=== PATIENT | female | born 1995 | race Caucasian/White ===

== ENCOUNTER 2022-03-13 10:51 | Inpatient (IN) ==
[2022-03-13 11:27] LABS: Glucose,Urine (UA) Negative (Negative); Protein,Urine Negative (Negative); Urine Appearance Clear (Clear); Urine Color Yellow (Yellow); Urine Specific Gravity 1.015 (1.001-1.035)
[2022-03-13 11:28] LABS: Bilirubin,Urine Negative (Negative); Blood, Urine Negative (Negative); Ketones,Urine Negative (Negative); Nitrite,Urine Negative (Negative)
[2022-03-13 11:31] LABS: Hyaline Casts,Urine 2 /LPF (0-3); Mucus,Urine Occasional /LPF (Occasional); RBC,Urine 1 /HPF (0-4); Squamous Epithelial Cell,Urine Few /HPF (0-10)
[2022-03-13] MEDS ORDERED: cefTRIAXone 1,000 MG in SODIUM CHLORIDE 0.9% 100 ML IV ONE (11:50)
[2022-03-13] MEDS ORDERED: LACTATED RINGERS 1,000 ML IV ONE (11:50)
[2022-03-13] MEDS ORDERED: CARBOPROST TROMETHAMINE 250 MCG/ML AMP IM PRN (13:26)
[2022-03-13] MEDS ORDERED: ONDANSETRON 4 MG/2 ML VIAL IV PRN ×2 (13:26→21:31)
[2022-03-13] MEDS ORDERED: TRANEXAMIC ACID 1,000 MG in SODIUM CHLORIDE 0.9% 100 ML IV PRN (13:26)
[2022-03-13] MEDS ORDERED: BUTORPHANOL 2 MG/ML VIAL IV PRN (13:26)
[2022-03-13] MEDS ORDERED: MEPERIDINE 50 MG/1 ML VIAL IV PRN (13:26)
[2022-03-13] MEDS ORDERED: miSOPROStoL 200 MCG TABLET RECTAL PRN (13:26)
[2022-03-13] MEDS ORDERED: OXYTOCIN/LR 20 UNIT/1,000 ML BAG IV ONE ×3 (13:26→21:31)
[2022-03-13] MEDS ORDERED: METHYLERGONOVINE 0.2 MG/1 ML AMP IM PRN (13:26)
[2022-03-13] MEDS ORDERED: PROMETHAZINE 25 MG/1 ML VIAL IM ONE (13:42)
[2022-03-13] MEDS ORDERED: FAMOTIDINE 20 MG/2 ML VIAL IV ONE (13:42)
[2022-03-13] MEDS ORDERED: hydrOXYzine HCL 25 MG/1 ML VIAL IM PRN (13:42)
[2022-03-13] MEDS ORDERED: NALOXONE 0.4 MG/ML VIAL IV PRN (13:42)
[2022-03-13] MEDS ORDERED: CITRIC ACID/SODIUM CITRATE 30 ML UDCUP PO ONE (13:42)
[2022-03-13] MEDS ORDERED: diphenhydrAMINE 50 MG/1 ML VIAL IV PRN ×2 (13:42)
[2022-03-13 13:46] LABS: Basophils % 0.3 % (0.0-0.8); Eosinophils % 0.4 % (0.00-10.9); Hematocrit 30.4 VOL% (35.7-47.0); Hemoglobin 9.7 GM/DL (12.0-16.0); Immature Granulocytes % 0.5 %; Immature Granulocytes Absolute 0.05 #; Lymphocytes # 1.2 10*3/uL (1.4-4.0); Lymphocytes % 12.6 % (21.3-54.2); Mean Corpuscular HGB Conc 31.9 GM/DL (32-36); Mean Corpuscular Volume 85.9 FL (87-102); Mean Platelet Volume 10.2 FL (9.6-12.0); Monocytes # 0.6 10*3/uL (0.11-0.8); Monocytes % 6.6 % (1.7-12.7); Neutrophils % 79.6 % (38.7-73.9); Platelet Count 185 T/CUMM (130-400); Red Blood Count 3.54 MC/CUMM (3.8-5.5); Red Cell Distribution Width 15.3 % (9.3-17.3); White Blood Count 9.6 T/CUMM (4-12)
[2022-03-13] MEDS ORDERED: fentaNYL 2 MCG/ROPIV 0.2% EPID 100 ML EPIDURAL SCH (14:00)
[2022-03-13] MEDS: LACTATED RINGERS 1,000 ML IV SCH ×2 (14:02→17:20)
[2022-03-13 14:04] LABS: Albumin 2.6 G/DL (3.4-5.0); Bilirubin,Total 0.6 MG/DL (0.20-1.00); Calcium 8.9 MG/DL (8.5-10.1); Osmolality,Calculated 271.7 MOS/KG (273-304); Potassium 3.8 MMOL/L (3.5-5.1); Total Protein 6.3 G/DL (6.4-8.2)
[2022-03-13] MEDS ORDERED: ACETAMINOPHEN 500 MG TABLET PO PRN (15:05)
[2022-03-13] MEDS ORDERED: OXYTOCIN/LR 20 UNIT/1,000 ML BAG IV SCH (16:30)
[2022-03-13] MEDS ORDERED: LACTATED RINGERS 1,000 ML IV SCH (16:49)
[2022-03-13] MEDS: ePHEDrine 50 MG/ML VIAL IV PRN ×3 (17:06→17:16)
[2022-03-13] MEDS ORDERED: ePHEDrine 50 MG/ML VIAL IV ONE (17:36)
[2022-03-13] MEDS ORDERED: PHENYLEPHRINE 1 MG/10 ML SYRINGE IV ONE (17:41)
[2022-03-13] MEDS ORDERED: TRANEXAMIC ACID 1,000 MG/10 ML VIAL ONE (20:41)
[2022-03-13] MEDS ORDERED: miSOPROStoL 200 MCG TABLET ONE (20:41)
[2022-03-13] MEDS ORDERED: SODIUM CHLORIDE 0.9% 0 ML IV ONE (20:41)
[2022-03-13] MEDS ORDERED: METHYLERGONOVINE 0.2 MG/1 ML AMP ONE (20:42)
[2022-03-13] MEDS ORDERED: CARBOPROST TROMETHAMINE 250 MCG/ML AMP IM ONE (20:43)
[2022-03-13] MEDS ORDERED: oxyCODONE/ACETAMINOPHEN 5-325 MG TABLET PO PRN ×2 (21:31)
[2022-03-13] MEDS ORDERED: LANOLIN 50% CREAM 0.3 OZ TUBE TOP PRN (21:31)
[2022-03-13] MEDS ORDERED: ACETAMINOPHEN 325 MG TABLET PO PRN (21:31)
[2022-03-13] MEDS ORDERED: HYDROCORTISONE 2.5% RECTAL CREAM 30 GM TUBE TOP PRN (21:31)
[2022-03-13] MEDS ORDERED: WITCH HAZEL PADS 100/JAR TOP PRN (21:31)
[2022-03-13] MEDS ORDERED: BISACODYL 10 MG SUPP RECTAL PRN (21:31)
[2022-03-13] MEDS ORDERED: BENZOCAINE 20%/MENTHOL 0.5% SPRAY 56 GM CAN TOP PRN (21:31)
[2022-03-13 21:37] LABS: Cord Arterial Blood HCO3 19.8 MMOL/L; Cord Venous Blood PCO2 42.1 MMHG; Cord Venous Blood PO2 27.4
[2022-03-13] MEDS ORDERED: MEASLES/MUMPS/RUBELLA VACCINE 0.5 ML VIAL SUBCUT ONE (22:00)
[2022-03-13] MEDS ORDERED: DIPH/TET/ACEL PERT BOOSTER VACCINE 0.5 ML VIAL IM ONE (22:00)
[2022-03-13] MEDS ORDERED: RHO(D) IMMUNE GLOBULIN 300 MCG SYRINGE IM ONE (22:00)
[2022-03-13] MEDS: IBUPROFEN 800 MG TABLET PO PRN (23:54)
[2022-03-14 05:29] LABS: Basophils % 0.4 % (0.0-0.8); Eosinophils # 0.1 10*3/uL (0.0-0.87); Eosinophils % 0.5 % (0.00-10.9); Hematocrit 27.7 VOL% (35.7-47.0); Immature Granulocytes % 0.4 %; Immature Granulocytes Absolute 0.04 #; Lymphocytes # 1.3 10*3/uL (1.4-4.0); Lymphocytes % 13.4 % (21.3-54.2); Mean Corpuscular HGB Conc 32.5 GM/DL (32-36); Mean Corpuscular Volume 85.2 FL (87-102); Mean Platelet Volume 10.5 FL (9.6-12.0); Monocytes # 0.9 10*3/uL (0.11-0.8); Monocytes % 8.8 % (1.7-12.7); Neutrophils % 76.5 % (38.7-73.9); Platelet Count 174 T/CUMM (130-400); Red Blood Count 3.25 MC/CUMM (3.8-5.5); Red Cell Distribution Width 15.3 % (9.3-17.3); White Blood Count 9.8 T/CUMM (4-12)
[2022-03-14] MEDS ORDERED: DOCUSATE SODIUM 100 MG CAPSULE PO SCH (09:00)
[2022-03-14] MEDS ORDERED: MULTIVITAMIN (PRENATAL) TABLET PO SCH (09:30)
[2022-03-14] MEDS: IBUPROFEN 800 MG TABLET PO PRN (10:50)
[2022-03-14 11:20] VITALS: BP 130/63
== END 2022-03-14 14:54 | disposition home or self-care (01) | DRG 806 ==
LOC: N.LDOUT 10:51 → N.LD 10:55 → N.OB 03-14 01:00
PROVIDERS: ADMIT Obstetrics & Gynecology; ATTEND Obstetrics & Gynecology